=== PATIENT | male | born 1965 | race Caucasian/White ===

== ENCOUNTER 2018-07-06 09:53 | Emergency (ER) | payer MEDICAID ==
[~2018-07-06] VITALS: Ht 165.1 cm; Wt 71.0 kg
[2018-07-06] MEDS ORDERED: IBUPROFEN 600MG TABLET PO ONE (11:00)
[2018-07-06] MEDS ORDERED: ACETAMINOPHEN 325MG TABLET PO ONE (11:15)
[2018-07-06 12:17] VITALS: BP 118/74
== END 2018-07-06 12:18 | disposition home or self-care (01) ==
LOC: ER 09:53
DX: H60.92 Unspecified otitis externa, left ear (principal)
CPT/HCPCS: 99283